=== PATIENT | female | born 1950 | race Hispanic/Latino ===

== ENCOUNTER 2018-05-26 00:35 | Observation (INO) | payer MEDICARE ==
[2018-05-26] VITALS (7 sets, daily range): BP systolic 120–178; BP diastolic 56–83
[~2018-05-26] VITALS: Ht 149.9 cm; Wt 86.2 kg
--- OUTSIDE RECORDS SUMMARY | 2018-05-26 00:37 | XMS REPORT ---
Author [facility] Address Unknown Phone Unavailable Care Team Providers Care Labor Relations Worker Name Role Phone ANDRES VAZQUEZ LEONEL Unavailable Unavailable HODA SIMEON Unavailable Unavailable Problems This patient has no known problems. Allergies, Adverse Reactions, Alerts This patient has no known allergies or adverse reactions. Medications This patient has no known medications. Results Test Description Test Time Test Comments Text Results Atomic Results Result Comments TROPONIN I 2017-07-30 15:53:00 TROPONIN I (BEAKER) (test qebf=818) < ng/mL 0.00-0.03 Troponin I (TnI) levels must be interpreted in the context of the presenting sym ptoms and the clinical findings. Elevated TnI levels indicate myocardial damage, but are not specific for ischemic heart disease. Elevated TnI levels are seen in patients with other cardiac conditions (including myocarditis and congestive h eart failure), and slight TnI elevations occur in patients with other conditions , including sepsis, renal failure, acidosis, acute neurological disease, and per sistent tachyarrhythmia.BASIC METABOLIC [id number] 15:45:00* Test Item Value Reference Range Comments SODIUM (BEAKER) (test gtpw=636) 139 meq/L 136-145 POTASSIUM (BEAKER) (test svvq=279) 3.8 meq/L 3.5-5.1 Specimen slightly hemolyzed CHLORIDE (BEAKER) (test pqdr=583) 103 meq/L 98-107 CO2 (BEAKER) (test xxnt=763) 22 meq/L 22-29 BLOOD UREA NITROGEN (BEAKER) (test dckg=405) 21 mg/dL 7-21 CREATININE (BEAKER) (test sken=418) 0.81 mg/dL 0.57-1.25 Specimen slightly hemolyzed GLUCOSE RANDOM (BEAKER) (test acex=058) 161 mg/dL 70-105 CALCIUM (BEAKER) (test yatm=125) 9.6 mg/dL 8.4-10.2 EGFR (BEAKER) (test pgsc=3605) 71 mL/min/1.73 sq m ESTIMATED GFR IS NOT ACCURATE CREATININE CLEARANCE IN PREDICTING GLOMERULAR FILTRATION RATE. ESTIMATED GFR IS NOT APPLICABLE FOR DIALYSIS PATIENTS. CT, BRAIN, WITHOUT [id number] 15:37:00Reason for exam:->CHEST PAINWhat is the patient's sedation requirement?->No SedationFINAL REPORT CT head without contrast 07/30/2017 3:36 PM CLINICAL HISTORY: Headache, acute, norm neuro examCHEST PAIN TECHNIQUE: Axial noncontrast CT images through the head were obtained. This examination was performed according to our departmental dose optimization program, which includes automated exposure control, adjustment of the mA and/or kV according to patient size, and/or use of iterated reconstruction technique. COMPARISON: 05/14/2014 FINDINGS: There is no hemorrhage, extra-axial collection, mass, hydrocephalus, or midline shift. There is rare chronic-appearing microvascular ischemia in the supratentorial white matter. There is generalized parenchymal volume loss. The visualized paranasal sinuses and mastoid air cells are well aerated. The skull is intact. IMPRESSION: No intracranial hemorrhage or mass effect. If concern for acute pathology persists, further evaluation with MRI is recommended. Signed: Roel Sanders Verified Date/Time: 07/30/2017 15:37:35 Reading Location: [address] Neuro Reading Room Electronically signed by: ROEL SANDERS M.D. on 03:37 PM RAD, CHEST, 1 VIEW, NON [id number] 15:20:00Reason for exam:->CHEST PAINShould this be performed at the bedside?->YesFINAL REPORT History: Chest pain Comparison: 04/28/2016 Findings: The lungs are clear. No pleural effusions or pneumothorax. The heart shadow is normal in size. The thoracic aorta is mildly tortuous. Mild degenerative changes are noted in the acromioclavicular joints. Impression: No evidence of acute cardiopulmonary disease. Signed: Nany Coronado Verified Date/Time: 07/30/2017 15:20:53 Reading Location: [address] Transitional Reading Room B-TYPE NATRIURETIC FACTOR (BNP)2017-07-30 15:09:00* Test Item Value Reference Range Comments B-TYPE NATRIURETIC PEPTIDE (BEAKER) (test xhit=238) 31 pg/mL 0-100 CBC W/PLT COUNT & AUTO [id number] 14:53:00* Test Item Value Reference Range Comments WHITE BLOOD CELL COUNT (BEAKER) (test rbug=895) 12.1 K/ L 3.5-10.5 RED BLOOD CELL COUNT (BEAKER) (test ffjt=871) 4.71 M/ L 3.93-5.22 HEMOGLOBIN (BEAKER) (test xxga=040) 14.7 GM/DL 11.2-15.7 HEMATOCRIT (BEAKER) (test mrsr=039) 42.2 % 34.1-44.9 MEAN CORPUSCULAR VOLUME (BEAKER) (test cysu=201) 89.6 fL 79.4-94.8 MEAN CORPUSCULAR HEMOGLOBIN (BEAKER) (test lbiy=040) 31.2 pg 25.6-32.2 MEAN CORPUSCULAR HEMOGLOBIN CONC (BEAKER) (test ukxg=372) 34.8 GM/DL 32.2-35.5 RED CELL DISTRIBUTION WIDTH (BEAKER) (test yove=590) 13.4 % 11.7-14.4 PLATELET COUNT (BEAKER) (test yyau=757) 276 K/CU MM 150-450 MEAN PLATELET VOLUME (BEAKER) (test wmhp=361) 11.6 fL 9.4-12.3 NUCLEATED RED BLOOD CELLS (BEAKER) (test ujhn=515) 0 /100 WBC 0-0 NEUTROPHILS RELATIVE PERCENT (BEAKER) (test nboc=021) 77 % LYMPHOCYTES RELATIVE PERCENT (BEAKER) (test pxxr=195) 15 % MONOCYTES RELATIVE PERCENT (BEAKER) (test zhzd=446) 6 % EOSINOPHILS RELATIVE PERCENT (BEAKER) (test xjqa=974) 0 % BASOPHILS RELATIVE PERCENT (BEAKER) (test pyit=475) 0 % NEUTROPHILS ABSOLUTE COUNT (BEAKER) (test glzp=269) 9.31 K/ L 1.56-6.13 LYMPHOCYTES ABSOLUTE COUNT (BEAKER) (test nmsg=339) 1.85 K/ L 1.18-3.74 MONOCYTES ABSOLUTE COUNT (BEAKER) (test yiiq=428) 0.71 K/ L 0.24-0.36 EOSINOPHILS ABSOLUTE COUNT (BEAKER) (test zpkc=446) 0.00 K/ L 0.04-0.36 BASOPHILS ABSOLUTE COUNT (BEAKER) (test kfwl=598) 0.05 K/ L 0.01-0.08 IMMATURE GRANULOCYTES-RELATIVE PERCENT (BEAKER) (test iarm=1185) 1 % 0-1 POCT-GLUCOSE [id number] 11:42:00* Test Item Value Reference Range Comments POC-GLUCOSE METER (BEAKER) (test xqkw=9862) 167 mg/dL 70-110 TESTED AT [place] [id number] POCT-GLUCOSE [id number] 08:34:00* Test Item Value Reference Range Comments POC-GLUCOSE METER (BEAKER) (test cqmv=1711) 130 mg/dL 70-110 TESTED AT [address] [address] POCT-GLUCOSE [id number] 21:34:00* Test Item Value Reference Range Comments POC-GLUCOSE METER (BEAKER) (test pfeb=2391) 210 mg/dL 70-110 TESTED AT [address] [address] POCT-GLUCOSE [id number] 17:15:00* Test Item Value Reference Range Comments POC-GLUCOSE METER (BEAKER) (test yiuy=9840) 219 mg/dL 70-110 TESTED AT [address] [address] POCT-GLUCOSE [id number] 16:23:00* Test Item Value Reference Range Comments POC-GLUCOSE METER (BEAKER) (test hntb=1392) 200 mg/dL 70-110 TESTED AT [address] [address] [id number] 09:28:00* Test Item Value Reference Range Comments D-DIMER QUANTITATIVE (BEAKER) (test buqi=813) 0.57 MG/L FEU <0.50 Intended Use: The D-Dimer Assay can be used to aid in the diagnosis of Deep Vein Thrombosis (DVT) and Pulmonary Embolism Disease (PED).In patients with low pre- test probability, various studies concerning STA Liatest D-dimer test have repor dane that with a cutoff value of 0.50 MG/L FEU, the Negative Predictive Value (APPEALS OFFICER V) regarding the exclusion of thrombosis is within 95-100% range.POCT-GLUCOSE [id number] 07:58:00* Test Item Value Reference Range Comments POC-GLUCOSE METER (BEAKER) (test hbac=0156) 256 mg/dL 70-110 TESTED AT [facility] [address] [facility] [address] CREATINE KINASE (CK), TOTAL AND [id number] 06:10:00* Test Item Value Reference Range Comments CREATINE KINASE TOTAL (BEAKER) (test uskc=460) 48 U/L 29-200 CREATINE KINASE-MB (BEAKER) (test awfd=914) 0.7 ng/mL 0.0-6.6 CREATINE KINASE-MB INDEX (BEAKER) (test qfrp=157) 1.5 % Effective 12/25/2013: CK-MB Reference Range ChangeNew: 0.0-6.6 Previous: 0.0- 4.9CK-MB Reference Range:<6.7 Normal6.7-10.0 Borderline>10.0 Abnormal TROPONIN [id number] 06:10:00* Test Item Value Reference Range Comments TROPONIN I (BEAKER) (test bxux=694) 0.01 ng/mL 0.00-0.03 Effective 12/25/2013: Reference Range ChangeNew: 0.00-0.03 Previous 0.00-0.15T roponin I (TnI) levels must be interpreted in the context of the presenting symp toms and the clinical findings. Elevated TnI levels indicate myocardial damage, but are not specific for ischemic heart disease. Elevated TnI levels are seen in patients with other cardiac conditions (including myocarditis and congestive he art failure), and slight TnI elevations occur in patients with other conditions, including sepsis, renal failure, acidosis, acute neurological disease, and pers istent tachyarrhythmia.CREATINE KINASE (CK), TOTAL AND [id number] 01:51:00* Test Item Value Reference Range Comments CREATINE KINASE TOTAL (BEAKER) (test fdxg=317) 50 U/L 29-200 CREATINE KINASE-MB (BEAKER) (test zkbb=559) 0.8 ng/mL 0.0-6.6 CREATINE KINASE-MB INDEX (BEAKER) (test aojd=950) 1.6 % Effective 12/25/2013: CK-MB Reference Range ChangeNew: 0.0-6.6 Previous: 0.0- 4.9CK-MB Reference Range:<6.7 Normal6.7-10.0 Borderline>10.0 Abnormal TROPONIN [id number] 01:51:00* Test Item Value Reference Range Comments TROPONIN I (BEAKER) (test ogxx=172) < ng/mL 0.00-0.03 Effective 12/25/2013: Reference Range ChangeNew: 0.00-0.03 Previous 0.00-0.15T roponin I (TnI) levels must be interpreted in the context of the presenting symp toms and the clinical findings. Elevated TnI levels indicate myocardial damage, but are not specific for ischemic heart disease. Elevated TnI levels are seen in patients with other cardiac conditions (including myocarditis and congestive he art failure), and slight TnI elevations occur in patients with other conditions, including sepsis, renal failure, acidosis, acute neurological disease, and pers istent tachyarrhythmia.[id number] 16:43:00* Test Item Value Reference Range Comments PROTIME (BEAKER) (test tjgk=785) 9.5 seconds 9.8-12.0 INR (BEAKER) (test qure=157) 0.9 <=5.9 PARTIAL THROMBOPLASTIN TIME (BEAKER) (test ujls=822) 23.2 seconds 25.8-34.5 RECOMMENDED COUMADIN/WARFARIN INR THERAPY RANGESSTANDARD DOSE: 2.0 - 3.0 Inclu walter: PROPHYLAXIS for venous thrombosis, systemic embolization; TREATMENT for bob ous thrombosis and/or pulmonary embolus.HIGH RISK: Target INR is 2.5-3.5 for pat ients with mechanical heart valves.RAPID [id number] 16:40:00* Test Item Value Reference Range Comments RAPID CKMB (BEAKER) (test gxkw=7242) < ng/mL 0.0-4.3 RAPID TROPONIN [id number] 16:39:00* Test Item Value Reference Range Comments RAPID TROPONIN I (BEAKER) (test lhea=6158) < ng/mL <0.05 RAPID [id number] 16:39:00* Test Item Value Reference Range Comments RAPID MYOGLOBIN (BEAKER) (test htbg=0960) 65 ng/mL <107 B-TYPE NATRIURETIC FACTOR (BNP)2016-06-28 16:36:00* Test Item Value Reference Range Comments B-TYPE NATRIURETIC PEPTIDE (BEAKER) (test ways=985) 7 pg/mL 0-100 [id number] 16:35:00* Test Item Value Reference Range Comments MAGNESIUM (BEAKER) (test kkms=476) 2.2 mg/dL 1.5-3.0 BASIC METABOLIC [id number] 16:35:00* Test Item Value Reference Range Comments SODIUM (BEAKER) (test usoa=535) 144 meq/L 135-148 POTASSIUM (BEAKER) (test digp=553) 4.3 meq/L 3.6-5.5 CHLORIDE (BEAKER) (test djxe=637) 104 meq/L 98-106 CO2 (BEAKER) (test nzre=862) 31 meq/L 24-32 BLOOD UREA NITROGEN (BEAKER) (test hyqc=753) 17 mg/dL 10-26 CREATININE (BEAKER) (test pwcn=846) 0.94 mg/dL 0.50-1.20 GLUCOSE RANDOM (BEAKER) (test dwnm=740) 142 mg/dL 70-110 CALCIUM (BEAKER) (test bzer=905) 9.5 mg/dL 8.5-10.5 EGFR (BEAKER) (test axzx=0614) 60 mL/min/1.73 sq m ESTIMATED GFR IS NOT ACCURATE CREATININE CLEARANCE IN PREDICTING GLOMERULAR FILTRATION RATE. ESTIMATED GFR IS NOT APPLICABLE FOR DIALYSIS PATIENTS. CREATINE KINASE (CK)2016-06-28 16:35:00* Test Item Value Reference Range Comments CREATINE KINASE TOTAL (BEAKER) (test aoaw=176) 48 U/L 25-235 CBC W/PLT COUNT & AUTO [id number] 16:34:00* Test Item Value Reference Range Comments WHITE BLOOD CELL COUNT (BEAKER) (test wtwf=509) 6.8 10e3/ L 4.0-10.0 RED BLOOD CELL COUNT (BEAKER) (test uwjy=090) 4.53 10e6/ L 4.00-5.00 HEMOGLOBIN (BEAKER) (test aljl=309) 14.0 g/dL 12.0-15.0 HEMATOCRIT (BEAKER) (test pjhm=975) 41.1 % 36.0-45.0 MEAN CORPUSCULAR VOLUME (BEAKER) (test mzoi=643) 90.6 fL 82.0-99.0 MEAN CORPUSCULAR HEMOGLOBIN (BEAKER) (test wqlr=408) 30.8 pg 27.0-33.0 MEAN CORPUSCULAR HEMOGLOBIN CONC (BEAKER) (test amkr=543) 34.0 g/dL 32.0-36.0 RED CELL DISTRIBUTION WIDTH (BEAKER) (test rpyg=716) 12.1 % 10.3-14.2 PLATELET COUNT (BEAKER) (test xcze=932) 251 10e3/ L 150-430 MEAN PLATELET VOLUME (BEAKER) (test dsfp=228) 8.3 fL 6.5-10.5 NEUTROPHILS RELATIVE PERCENT (BEAKER) (test jtnf=843) 56 % LYMPHOCYTES RELATIVE PERCENT (BEAKER) (test eoib=400) 33 % MONOCYTES RELATIVE PERCENT (BEAKER) (test rspa=273) 8 % EOSINOPHILS RELATIVE PERCENT (BEAKER) (test tccc=651) 3 % BASOPHILS RELATIVE PERCENT (BEAKER) (test vsls=223) 0 % NEUTROPHILS ABSOLUTE COUNT (BEAKER) (test tjod=010) 3.84 10e3/ L 1.80-8.00 LYMPHOCYTES ABSOLUTE COUNT (BEAKER) (test xjub=209) 2.22 10e3/ L 1.48-4.50 MONOCYTES ABSOLUTE COUNT (BEAKER) (test ogiy=084) 0.54 10e3/ L 0.00-1.30 EOSINOPHILS ABSOLUTE COUNT (BEAKER) (test ryjt=874) 0.18 10e3/ L 0.00-0.50 BASOPHILS ABSOLUTE COUNT (BEAKER) (test zrnf=853) 0.03 10e3/ L 0.00-0.20
--- OUTSIDE RECORDS SUMMARY | 2018-05-26 00:37 | XMS REPORT | Clinical Summary ---
Author Author DEYSI [facility] Organization [facility] Address Unknown Phone Unavailable Care Team Providers Care Registered Representative Name Role Phone Tito PCP Unavailable Allergies Comments Active Allergy Reactions Severity Noted Date blisters Adhesive Other (See High 03/27/2012 Comments), Rash Swelling,itching, shortness of breath Amitriptyline Swelling, High 11/06/2009 Hives Aspirin, Buffered Rash Low 06/28/2016 bufferin brand Buffers Rash Low 05/14/2014 Meperidine Rash Low 01/23/2008 Worsening acid reflux Ibuprofen Other (See 06/30/2016 Comments) Shaking , to iv iodine Iodine Rash Low 01/23/2008 Iodine And Iodide Itching 07/18/2012 Containing Products Penicillins Rash Low 01/23/2008 Medications End Date Status Medication Sig Dispensed Refills Start Date Active pramipexole (MIRAPEX) 0.5 Take 0.5 mg 0 MG tablet by mouth 2 (two) times daily as needed . Active pyridostigmine (MESTINON) Take 60 mg by 0 60 mg tablet mouth 3 (three) times daily . Active vitamin E 400 UNIT Take 400 0 capsule Units by mouth 2 (two) times daily . Active azelastine (ASTELIN) 137 Use one puff 0 mcg (0.1 %) nasal spray in each 4 nostril twice a day as needed for nasal congestion Active nnsjswlskupyznw-epnutft-f Apply 1 0 oly80 (REFRESH OPTIVE application ADVANCED) 0.5-1-0.5 % to eye(s) 3 Drop (three) times daily . Active mirabegron (MYRBETRIQ) 25 Take 1 tablet 0 201 mg Tb24 ER tablet by mouth. 7 Active ondansetron (ZOFRAN-ODT) Take 8 mg by 0 8 MG disintegrating mouth 3 7 tablet (three) times daily as needed for Nausea . Active venlafaxine (EFFEXOR-XR) Take 37.5 mg 0 37.5 MG 24 hr capsule by mouth 6 daily . Active lisinopril Take 20 mg by 0 (PRINIVIL,ZESTRIL) 20 MG mouth daily . 7 tablet Active mycophenolate (CELLCEPT) TAKE THREE 0 500 mg tablet (3) TABLET(S) 7 BY MOUTH TWICE A DAY. Active traMADol (ULTRAM) 50 mg TAKE ONE (1) 0 tablet TABLET(S) BY 7 MOUTH TWICE A DAY NEEDED FOR PAIN. Active esomeprazole (NEXIUM) 40 Take 1 30 capsule 11 MG capsule capsule (40 7 mg total) by mouth daily. 07/30/2018 Active naproxen (NAPROSYN) 375 Take 1 tablet 20 tablet 0 MG tablet (375 mg 8 total) by mouth 2 (two) times daily with breakfast and dinner. Active Problems Problem Noted Date Gastroesophageal reflux disease without esophagitis 06/29/2016 Essential hypertension 06/29/2016 MARIO ALBERTO on CPAP 06/29/2016 RLS (restless legs syndrome) 06/29/2016 Depression 06/29/2016 Morbid obesity 06/29/2016 Chest pain, unspecified type 06/28/2016 Myasthenia gravis 07/14/2012 Encounters Care Team Description Date Type Specialty Bladimir Vazquez MD Acute nonintractable headache, unspecified headache type (Primary Dx); Chest pain, unspecified type; Right-sided Self's palsy 07/30/2017 Emergency Emergency Medicine 07/30/2017 Orders Only General Internal Medicine after 05/25/2017 Family History Medical History Relation Name Comments Diabetes Daughter Hypertension Daughter Cancer Sister Diabetes Sister Hypertension Son Relation Name Status Comments Daughter Father Mother Sister Son Social History Date Tobacco Use Types Packs/Day Years Used Never Smoker Smokeless Tobacco: Never Used Alcohol Use Drinks/Week oz/Week Comments Yes 2 Standard 1.0 COFFEE 2 CUPS DAILY drinks or equivalent Sex Assigned at Date Recorded Not on file Industry Job Start Date Occupation Not on file Not on file Not on file Travel End Travel History Travel Start No recent travel history available. Last Filed Vital Signs Time Taken Vital Sign Reading 07/30/2017 3:26 PM CDT Blood Pressure 156/71 07/30/2017 3:26 PM CDT Pulse 62 07/30/2017 2:16 PM CDT Temperature 35.9 C (96.6 F) 07/30/2017 3:26 PM CDT Respiratory Rate 16 07/30/2017 3:26 PM CDT Oxygen Saturation 96% - Inhaled Oxygen - Concentration 07/30/2017 2:16 PM CDT Weight 89.8 kg (198 lb) 07/30/2017 2:16 PM CDT Height 149.9 cm (4' 11") 07/30/2017 2:16 PM CDT Body Mass Index 39.99 Plan of Treatment Not on file Procedures Comments Procedure Name Priority Date/Time Associated Diagnosis REPORT OF PROCEDURE - 08/01/2017 ENDOSCOPY SCAN 3:15 PM CDT ED ECG INTERPRETATION Routine 07/30/2017 5:[address] BRAIN WITHOUT IV STAT 07/30/2017 CONTRAST 3:34 PM CDT TROPONIN I STAT 07/30/2017 3:02 PM CDT BASIC METABOLIC PANEL (7) STAT 07/30/2017 3:02 PM CDT XR CHEST 1 VIEW STAT 07/30/2017 PORTABLE/BEDSIDE 2:44 PM CDT CBC W/PLT COUNT & AUTO STAT 07/30/2017 DIFFERENTIAL 2:40 PM CDT B-TYPE NATRIURETIC FACTOR STAT 07/30/2017 (BNP) 2:40 PM CDT CBC W/PLT COUNT & AUTO STAT 07/30/2017 DIFFERENTIAL 2:40 PM CDT ECG 12-LEAD Routine 07/30/2017 2:12 PM CDT ECG 12-LEAD Routine 07/30/2017 2:12 PM CDT Procedure Note - Interface, External Ris In - 07/30/2017 3:02 PM CDT Ventricula r Rate 75 BPM Atrial Rate 75 BPM P-R Interval 160 ms QRS Duration 78 ms Q-T Interval 368 ms QTC Calculatio n(Bazett) 410 ms P Turner 39 degrees R Turner -23 degrees T Turner 11 degrees Normal sinus rhythm Minimal voltage criteria for LVH, may be normal variant Anterolate ral infarct , age undetermin ed Abnormal ECG When compared with ECG of 7 16:06, Nonspecifi c T wave abnormalit y now evident in Anterior leads after 05/25/2017 Results * EKG-SCANNED (08/01/2017 3:15 PM CDT) Narrative Performed At * ED ECG Interpretation (07/30/2017 5:50 PM CDT) Narrative Performed At Bladimir Vazquez MD 07/30/20175:50 PM ECG/EKG Interpretation Date/Time: 07/30/2017 2:22 PM Performed by: BLADIMIR VAZQUEZ Authorized by: BLADIMIR VAZQUEZ The ECG was interpreted by ED physician. This ECG was compared with previous ECG(s).The ECG is interpreted as sinus rhythm. Rate is normal rate. Heart rate is 75 BPM. Conduction: conduction normal. ST segments normal. T waves abnormal. T-wave flattening in lead(s) V3, V4, V5, V6 and aVF. Turner is left. Clinical Impression: non-specific ECGECG reviewed and does not meet STEMI criteria. * CT brain without IV contrast (07/30/2017 3:34 PM CDT) Narrative Performed At FINAL REPORT Endovention CT head without contrast 07/30/2017 3:36 PM CLINICAL HISTORY: Headache, acute, norm neuro exam CHEST PAIN TECHNIQUE: Axial noncontrast CT images through [...] with MRI is recommended. Signed: Roel Sanders MD Report Verified Date/Time:07/30/2017 15:37:35 Reading Location: [address] Neuro Reading Room Procedure Note Interface, External Ris In - 07/30/2017 3:39 PM CDT FINAL REPORT CT head without contrast 07/30/2017 3:36 PM CLINICAL HISTORY: Headache, acute, norm neuro exam CHEST PAIN TECHNIQUE: Axial noncontrast CT images through [...] with MRI is recommended. Signed: Roel Sanders MD Report Verified Date/Time: 07/30/2017 15:37:35 Reading Location: [address] Neuro Reading Room Performing Organization Address City/State/Zipcode Phone Number RIS * Troponin I (not available at [facility] [place]) (07/30/2017 3:02 PM CDT) Troponin I <0.01 0.00 - 0.03 ng/mL [facility] Specimen Blood Narrative Performed At Troponin I (TnI) levels must be interpreted in the context of the presenting [facility] symptoms and the clinical findings. Elevated TnI levels indicate myocardial [facility] damage, but are not specific for ischemic heart disease. Elevated TnI levels are seen in patients with other cardiac conditions (including myocarditis and congestive heart failure), and slight TnI elevations occur in patients with other conditions, including sepsis, renal failure, acidosis, acute neurological disease, and persistent tachyarrhythmia. Performing Organization Address [facility]/Zipcode Phone Number [facility] [address] [place] [address] [facility] * Basic metabolic panel (Na, K+, Cl, CO2, Glu, Ca, BUN, Cr) (07/30/2017 3:02 PM CDT) Sodium 139 136 - 145 meq/L [facility] Potassium 3.8Comment: Specimen slightly 3.5 - 5.1 meq/L [facility] Chloride 103 98 - 107 meq/L [facility] CO2 22 22 - 29 meq/L [facility] BUN 21 7 - 21 mg/dL [facility] Creatinine 0.81Comment: Specimen slightly 0.57 - 1.25 mg/dL [facility] Glucose 161 (H) 70 - 105 mg/dL [facility] Calcium 9.6 8.4 - 10.2 mg/dL [facility] EGFR 71Comment: ESTIMATED GFR IS mL/min/1.73 sq m [facility] NOT ACCURATE CREATININE [facility] CLEARANCE IN PREDICTING GLOMERULAR FILTRATION RATE. ESTIMATED GFR IS NOT APPLICABLE FOR DIALYSIS PATIENTS. Specimen Blood Performing Organization Address [facility] Cent[facility]ode Phone Number [phone] [place] [address] [facility] * XR chest 1 view portable / bedside (07/30/2017 2:44 PM CDT) Narrative Performed At FINAL REPORT [facility] History: Chest pain Comparison: 04/28/2016 Findings: The lungs are clear. No pleural effusions or pneumothorax. The heart shadow is normal in size. The thoracic aorta is mildly tortuous. Mild degenerative changes are noted in the acromioclavicular joints. Impression: No evidence of acute cardiopulmonary disease. Signed: Nany Coronado MD Report Verified Date/Time:07/30/2017 15:20:53 Reading Location: [facility] B1 C013T Transitional Reading Room Procedure Note Interface, External Ris In - 07/30/2017 3:23 PM CDT FINAL REPORT History: Chest pain Comparison: 04/28/2016 Findings: The lungs are clear. No pleural effusions or pneumothorax. The heart shadow is normal in size. The thoracic aorta is mildly tortuous. Mild degenerative changes are noted in the acromioclavicular joints. Impression: No evidence of acute cardiopulmonary disease. Signed: Nany Coronado MD Report Verified Date/Time: 07/30/2017 15:20:53 Reading Location: [facility] C013 Transitional Reading Room Performing Organization Address City/State/Zipcode Phone Number GE RIS * CBC with platelet count + automated diff (07/30/2017 2:40 PM CDT) WBC 12.1 (H) 3.5 - 10.5 K/L [facility] RBC 4.71 3.93 - 5.22 M/L [facility] Hemoglobin 14.7 11.2 - 15.7 GM/DL [facility] Hematocrit 42.2 34.1 - 44.9 % [facility] MCV 89.6 79.4 - 94.8 fL [facility] MCH 31.2 25.6 - 32.2 pg [facility] MCHC 34.8 32.2 - 35.5 GM/DL [facility] RDW 13.4 11.7 - 14.4 % [facility] Platelets 276 150 - 450 K/CU MM [facility] MPV 11.6 9.4 - 12.3 fL [facility] nRBC 0 0 - 0 /100 WBC [facility] % Neutros 77 % [facility] % Lymphs 15 % [facility] % Monos 6 % [facility] % Eos 0 % [facility] % Baso 0 % [facility] # Neutros 9.31 (H) 1.56 - 6.13 K/L [facility] # Lymphs 1.85 1.18 - 3.74 K/L [facility] # Monos 0.71 (H) 0.24 - 0.36 K/L [facility] # Eos 0.00 (L) 0.04 - 0.36 K/L [facility] # Baso 0.05 0.01 - 0.08 K/L [facility] Immature 1 0 - 1 % [facility] Granulocytes-Relative [facility] Specimen Blood Performing Organization Address City/State/Zipcode Phone Number [facility] [address] [place] [address] [phone] [place] [address] * B-type natriuretic peptide (07/30/2017 2:40 PM CDT) BNP 31 0 - 100 pg/mL [facility] Specimen Blood Performing Organization Address City/State/Zipcode Phone Number [address] [address] [phone] [place] [address] * ECG 12 lead (07/30/2017 2:12 PM CDT) Narrative Performed At Ventricular Rate 75 BPM [facility] Atrial Rate 75 BPM P-R Interval 160 ms QRS Duration 78 ms Q-T Interval 368 ms QTC Calculation(Bazett) 410 ms P Turner 39 degrees R Turner -23 degrees T Turner 11 degrees Normal sinus rhythm Minimal voltage criteria for LVH, may be normal variant Anterolateral infarct , age undetermined Abnormal ECG When compared with ECG of 28-JUN-2016 16:06, Nonspecific T wave abnormality now evident in Anterior leads Confirmed by MD ERON, JOSELIN Andrade ([id number]) on 07/31/2017 4:20:31 PM Procedure Note Interface, External Ris In - 07/31/2017 4:20 PM CDT Ventricular Rate 75 BPM Atrial Rate 75 BPM P-R Interval 160 ms QRS Duration 78 ms Q-T Interval 368 ms QTC Calculation(Bazett) 410 ms P Turner 39 degrees R Turner -23 degrees T Turner 11 degrees Normal sinus rhythm Minimal voltage criteria for LVH, may be normal variant Anterolateral infarct , age undetermined Abnormal ECG When compared with ECG of 28-JUN-2016 16:06, Nonspecific T wave abnormality now evident in Anterior leads Confirmed by MD ERON, JOSELIN Andrade ([id number]) on 07/31/2017 4:20:31 PM Performing Organization Address City/State/Zipcoga Phone Number GE MUSE after 05/25/2017 Insurance Payer Benefit Subscriber ID Type Phone Address Plan / Group KELSEYCARE KELSEYCARE xxxxxxxxxxx MEDICARE ADV MEDICAID MEDICAID xxxxxxxxx Medicaid [place] Advance Directives For more information, please contact: [facility] [address] [place] [address] Date Inactivated Comments Code Status Date Activated 06/30/2016 7:06 PM Full Code 06/28/2016 8:49 PM This code status was determined by: Patient
[2018-05-26] MEDS ORDERED: SODIUM CHLORIDE 0.9% 500ML 500 ML IV STA (00:51)
[2018-05-26] MEDS ORDERED: FAMOTIDINE 20 MG/2 ML VIAL IV ONE (01:00)
[2018-05-26] MEDS ORDERED: KETOROLAC TROMETHAMINE 30 MG/ML VIAL IV ONE (01:00)
[2018-05-26] MEDS ORDERED: ONDANSETRON HCL INJ 2MG/ML 2ML 2 MG/ML VIAL IV ONE (01:00)
--- NOTE | 2018-05-26 01:38 | Diagnostic Imaging Report ---
EXAMINATION: CXR 1 VIEW - HOPD COMPARISON: None INDICATION: Headache ^[id number] ^[id number] DISCUSSION: Frontal view of the chest obtained at 0116 hours. HEART AND MEDIASTINUM: The cardiomediastinal silhouette is unremarkable. LINES: None. LUNGS: The lungs are well inflated and clear. No pneumonia or pulmonary edema. PLEURA: No pleural effusion or pneumothorax. BONES AND SOFT TISSUES: No focal osseous lesion. The soft tissues are normal. IMPRESSION: No acute cardiopulmonary disease. Signed by: Dr. Candy Centeno MD on 05/26/2018 1:35 AM
--- NOTE | 2018-05-26 01:40 | Diagnostic Imaging Report ---
History:Headache Comparison studies:None Technique: Axial images were obtained from the skull base to the vertex. Coronal and sagittal images reconstructed from the axial data. Intravenous contrast: None Dose modulation, iterative reconstruction, and/or weight based adjustment of the mA/kV was utilized to reduce the radiation dose to as low as reasonably achievable. Findings: Scalp/skull: No abnormalities. Extra-axial spaces: No masses. No fluid collections. Brain sulci: Age appropriate. Ventricles: Age appropriate.. No hydrocephalus. Parenchyma: Few hypodensities in the supratentorial white matter are small vessel ischemic changes. No masses, hemorrhage, acute or chronic cortical vascular insults. Sellar/suprasellar region: No abnormalities. Craniocervical junction: Patent foramen magnum. No Chiari one malformation. Incidental findings: Atherosclerotic calcifications in the carotid siphons . Impression: No acute abnormalities. Chronic findings: 1. Mild supratentorial white matter small vessel ischemic changes. Signed by: DR Joaquin Ellison M.D. on 05/26/2018 1:36 AM
[2018-05-26] MEDS ORDERED: LABETALOL HCL 5 MG/ML 20ML VIAL IV STA ×2 (01:51→02:15)
[2018-05-26] MEDS ORDERED: SODIUM CHLORIDE 0.9% 1000ML 1,000 ML IV STA (01:55)
[2018-05-26] MEDS ORDERED: MORPHINE SULFATE 2 MG/ML SYR 1ML IV PRN (02:00)
[2018-05-26] MEDS ORDERED: PROMETHAZINE 12.5MG/ NACL 0.9% 12.5 MG/50 ML BAG IV PRN (02:00)
[2018-05-26] MEDS ORDERED: ZOLPIDEM TARTRATE 5 MG TAB PO PRN (02:00)
[2018-05-26] MEDS ORDERED: ENALAPRILAT IV INJ 1.25 MG/ML VIAL IV PRN (02:00)
[2018-05-26] MEDS ORDERED: DIPHENHYDRAMINE HCL INJ 50 MG/ML VIAL IV PRN (02:00)
[2018-05-26] MEDS ORDERED: DIPHENHYDRAMINE HCL INJ 50 MG/ML VIAL IV ONE (02:15)
[2018-05-26] MEDS ORDERED: PROMETHAZINE 12.5MG/ NACL 0.9% 12.5 MG/50 ML BAG IV ONE (02:15)
[2018-05-26] MEDS ORDERED: DEXTROSE 50% SYRINGE 50 ML IV PRN (02:15)
--- OUTSIDE RECORDS SUMMARY | 2018-05-26 02:17 | XMS REPORT | Clinical Summary ---
Author Author DEYSI [facility] Organization [facility] Address Unknown Phone Unavailable Care Team Providers Care Churner Name Role Phone Tito PCP Unavailable Allergies [...] day as needed for nasal congestion Active bnhwbrsucxbwbab-zjhqmhp-l Apply 1 0 oly80 (REFRESH OPTIVE application [...] ms QTC Calculatio n(Bazett) 410 ms P [place] 39 degrees R [place] -23 degrees T [place] 11 degrees Normal sinus rhythm Minimal voltage [...] lead(s) V3, V4, V5, V6 and aVF. [place] is left. Clinical Impression: non-specific ECGECG reviewed and does not meet STEMI criteria. * CT brain without IV contrast (07/30/2017 3:34 PM CDT) Specimen Narrative Performed At FINAL REPORT [facility] CT head without contrast 07/30/2017 3:36 PM [...] MD Report Verified Date/Time:07/30/2017 15:37:35 Reading Location: [address] Neuro Reading Room Procedure Note Interface, [...] Report Verified Date/Time: 07/30/2017 15:37:35 Reading Location: [address] Neuro Reading Room Performing Organization Address City/State/Zipcode Phone Number RIS * Troponin I (not available at [facility] [place]) (07/30/2017 3:02 PM CDT) Troponin I <0.01 0.00 - 0.03 ng/mL [facility] Specimen Blood Narrative Performed At Troponin I (TnI) levels must be interpreted in the context of the presenting [facility] symptoms and the clinical findings. Elevated TnI levels indicate myocardial [facility] damage, but are not specific for ischemic heart disease. Elevated TnI levels are seen in patients with other cardiac conditions (including myocarditis and congestive heart failure), and slight TnI elevations occur in patients with other conditions, including sepsis, renal failure, acidosis, acute neurological disease, and persistent tachyarrhythmia. Performing Organization Address [facility]/Zipcode Phone Number [facility] [address] [place], [place] [phone] [facility] * Basic metabolic panel (Na, K+, Cl, CO2, Glu, Ca, BUN, Cr) (07/30/2017 3:02 PM CDT) Sodium 139 136 - 145 meq/L [facility] Potassium 3.8Comment: Specimen slightly 3.5 - 5.1 meq/L [facility] Chloride 103 98 - 107 meq/L [facility] CO2 22 22 - 29 meq/L [facility] BUN 21 7 - 21 mg/dL [facility] Creatinine 0.81Comment: Specimen slightly 0.57 - 1.25 mg/dL [facility] Glucose 161 (H) 70 - 105 mg/dL [facility] Calcium 9.6 8.4 - 10.2 mg/dL [facility] EGFR 71Comment: ESTIMATED GFR IS mL/min/1.73 sq m [facility] NOT ACCURATE CREATININE [facility] CLEARANCE IN PREDICTING GLOMERULAR FILTRATION RATE. ESTIMATED GFR IS NOT APPLICABLE FOR DIALYSIS PATIENTS. Specimen Blood Performing Organization Address [facility] Centercode Phone Number [phone] [place], [place] [phone] [facility] * XR chest 1 view portable / bedside (07/30/2017 2:44 PM CDT) Specimen Narrative Performed At FINAL REPORT [facility] History: Chest pain Comparison: 04/28/2016 Findings: The lungs are clear. No pleural effusions or pneumothorax. The heart shadow is normal in size. The thoracic aorta is mildly tortuous. Mild degenerative changes are noted in the acromioclavicular joints. Impression: No evidence of acute cardiopulmonary disease. Signed: Nany Coronado MD Report Verified Date/Time:07/30/2017 15:20:53 Reading Location: [facility] C0[facility] Transitional Reading Room Procedure Note Interface, External [...] Report Verified Date/Time: 07/30/2017 15:20:53 Reading Location: [facility] C013 Transitional Reading Room Performing Organization Address City/State/Zipcode Phone Number GE RIS * CBC with platelet count + automated diff (07/30/2017 2:40 PM CDT) WBC 12.1 (H) 3.5 - 10.5 K/L [facility] RBC 4.71 3.93 - 5.22 M/L [facility] Hemoglobin 14.7 11.2 - 15.7 GM/DL [facility] Hematocrit 42.2 34.1 - 44.9 % [facility] MCV 89.6 79.4 - 94.8 fL [facility] MCH 31.2 25.6 - 32.2 pg [facility] MCHC 34.8 32.2 - 35.5 GM/DL [facility] RDW 13.4 11.7 - 14.4 % [facility] Platelets 276 150 - 450 K/CU MM [facility] MPV 11.6 9.4 - 12.3 fL [facility] nRBC 0 0 - 0 /100 WBC [facility] % Neutros 77 % [facility] % Lymphs 15 % [facility] % Monos 6 % [facility] % Eos 0 % [facility] % Baso 0 % [facility] # Neutros 9.31 (H) 1.56 - 6.13 K/L [facility] # Lymphs 1.85 1.18 - 3.74 K/L [facility] # Monos 0.71 (H) 0.24 - 0.36 K/L [facility] # Eos 0.00 (L) 0.04 - 0.36 K/L [facility] # Baso 0.05 0.01 - 0.08 K/L [facility] Immature 1 0 - 1 % [facility] Granulocytes-Relative [facility] Specimen Blood Performing Organization Address City/[facility]/[place] [address] [phone] [place] [address] * B-type natriuretic peptide (07/30/2017 2:40 PM CDT) BNP 31 0 - 100 pg/mL [facility] Specimen Blood Performing Organization Address City/State/Zipcode Phone Number [address] [address] [phone] [place] [address] * ECG 12 lead (07/30/2017 2:12 PM CDT) Specimen Narrative Performed At Ventricular Rate 75 BPM [facility] Atrial Rate 75 BPM P-R Interval 160 ms QRS Duration 78 ms Q-T Interval 368 ms QTC Calculation(Bazett) 410 ms P [place] 39 degrees R [place] -23 degrees T [place] 11 degrees Normal sinus rhythm Minimal voltage criteria for LVH, may be normal variant Anterolateral infarct , age undetermined Abnormal ECG When compared with ECG of 28-JUN-2016 16:06, Nonspecific T wave abnormality now evident in Anterior leads Confirmed by MD ERON, JOSELIN Andrade ([id number]) on 07/31/2017 4:20:31 PM Procedure Note Interface, External Ris In - 07/31/2017 4:20 PM CDT Ventricular Rate 75 BPM Atrial Rate 75 BPM P-R Interval 160 ms QRS Duration 78 ms Q-T Interval 368 ms QTC Calculation(Bazett) 410 ms P [place] 39 degrees R [place] -23 degrees T [place] 11 degrees Normal sinus rhythm Minimal voltage criteria for LVH, may be normal variant Anterolateral infarct , age undetermined Abnormal ECG When compared with ECG of 28-JUN-2016 16:06, Nonspecific T wave abnormality now evident in Anterior leads Confirmed by MD ERON, JOSELIN Andrade ([id number]) on 07/31/2017 4:20:31 PM Performing Organization Address City/State/Zipcode Phone Number GE MUSE after 05/25/2017 Insurance Payer Benefit Subscriber ID Type Phone Address Plan / Group K[employer]YCARE KELSEYCARE xxxxxxxxxxx MEDICARE ADV MEDICAID MEDICAID xxxxxxxxx Medicaid OF [place] Advance Directives For more information, please contact: [facility] [address] [place] [address] Date Inactivated Comments Code Status Date Activated 06/30/2016 7:06 PM Full Code 06/28/2016 8:49 PM This code status was determined by: Patient
[2018-05-26] MEDS ORDERED: LISINOPRIL10 MG PO (02:37)
[2018-05-26] MEDS ORDERED: TOPIRAMATE25 MG PO (02:37)
[2018-05-26] MEDS ORDERED: ATORVASTATIN CA10 MG PO (02:37)
[2018-05-26] MEDS ORDERED: MYCOPHENOLATE250 MG PO (02:37)
[2018-05-26] MEDS ORDERED: VENLAFAXINE HCL75 MG PO (02:37)
[2018-05-26] MEDS ORDERED: AZELASTINE137 MCG/0. (02:37)
[2018-05-26] MEDS ORDERED: PRAMIPEXOLE D0.25 MG PO (02:37)
[2018-05-26] MEDS ORDERED: METFORMIN HCL500 M2 PO (02:37)
[2018-05-26] MEDS ORDERED: MYRBETRIQ25 MG (02:37)
[2018-05-26] MEDS ORDERED: ULTRAM50 MG PO (02:37)
[2018-05-26] MEDS ORDERED: OMEPRAZOLE40 MG PO (02:37)
[2018-05-26] MEDS ORDERED: VITAMIN E400 UNI5 (03:43)
[2018-05-26] MEDS ORDERED: MORPHINE SULFATE INJ 4 MG/ML INJ 1ML IV PRN (04:31)
--- NOTE | 2018-05-26 04:41 | NUR ---
Patient arrived from [facility] free standing ER admitted for headache, N/V. Patient also have uncontrolled HTN. Daughter came with patient. Patient is complaining of restless leg syndrome and takes a home medication, pramipexole. Patient is alert/oriented X3 with the VS within the normal parameter except for BP at 178/81. Patient was given Vasotec and about 15 minutes later, blood pressure was measured at 127/69. Patient continues to be restless with the blood pressure now at 187/87 at 0440. Patient was given morphine 2 mg at 0440. Continue to monitor BP
--- NOTE | 2018-05-26 07:24 | NUR ---
RECEIVED PATIENT AND WALKING ROUNDS COMPLETE. PATIENT RESTING IN BED AT THIS TIME, NO SIGNS OF DISTRESS. CALL LIGHT IN REACH WILL CONTINUE TO MONITOR.
[2018-05-26] MEDS: INSULIN REGULAR, HUMAN 100 UNIT/1 ML 3ML VIAL SQ SCH ×2 (08:19→12:10)
[2018-05-26] MEDS ORDERED: FAMOTIDINE 20 MG/2 ML VIAL IV SCH (09:00)
--- NOTE | 2018-05-26 10:41 | NUR ---
PATIENT LEFT FOR MRI AT THIS TIME VIA WHEELCHAIR.
--- NOTE | 2018-05-26 11:21 | NUR ---
PATIENT BACK FROM MRI AT THIS TIME.
--- NOTE | 2018-05-26 12:28 | Diagnostic Imaging Report ---
Exam: Brain MRI without IV contrast History: Headache Comparison studies: Head CT 05/26/2018 Technique: Sagittal and axial T2 FS, axial DWI, axial T2*GRE, axial T1 FLAIR and axial coronal T2 FLAIR. Intravenous contrast: None Findings: Scalp: Normal in signal. No masses. Bone marrow: Normal in signal intensity. Brain sulci: Appropriate for age. Ventricles: Normal in size. No hydrocephalus. Extra axial spaces: No mass, no fluid collection. Parenchyma: No abnormal signal intensities. No mass, hemorrhage or acute ischemia. No chronic cortical insults. Suprasellar region: Mildly expanded, mostly CSF filled sella, a nonspecific finding. Additionally, there is mild vertical tortuosity of the optic nerve sheath complexes. Consider idiopathic intracranial hypertension only in the appropriate clinical setting. Craniocervical junction: Patent foramen magnum. No Chiari malformation. Vessels: Normal flow-voids in the arteries and sinuses. Paranasal sinuses: Scattered nonspecific T2 hyperintense mucosal thickening in the paranasal sinuses with left maxillary sinus fluid level. Incidental findings: Minimal bilateral mastoid reactive changes. Lens replacements for previous cataract surgery. IMPRESSION: 1. Incidental partially CSF filled sella, a nonspecific but can be seen in patients with idiopathic intracranial hypertension in the appropriate clinical setting. Moreover, initial presentation of this diagnosis would be somewhat unusual in a patient of this age. 2. No other intracranial abnormalities. 3. Inflammatory changes in the paranasal sinuses could be correlated for acute sinusitis Signed by: Dr. Clarke Valente M.D. on 05/26/2018 12:25 PM
--- NOTE | 2018-05-26 14:13 | NUR ---
REMOVED PATIENTS IV. CATHETER TIP INTACT AND PRESSURE DRESSING APPLIED.
--- NOTE | 2018-05-26 14:19 | NUR ---
PATIENT DISCHARGED FROM FACILITY. PATIENT GATHERED ALL PERSONAL BELONGINGS, DISCHARGE INSTRUCTIONS, AND FOLLOW UP INFORMATION. PATIENT LEFT UNIT IN WHEELCHAIR AND WENT HOME VIA PRIVATE AUTO. NO SIGNS OF DISTRESS LEAVING FACILITY.
--- NOTE | 2018-05-26 23:03 | Discharge Summary ---
PRIMARY CARE DOCTOR: Dr. Euceda. FINAL DIAGNOSIS: Possible pseudotumor cerebri. SECONDARY DIAGNOSES: 1. Obesity. 2. Diabetes. 3. Hypertension. 4. Myasthenia gravis. PROCEDURE/STUDIES PERFORMED: 1. Head CT. 2. Brain MRI. CONSULTANTS: None. HISTORY: Per [facility] and [facility]. HOSPITAL COURSE: The patient was admitted with intractable headache with severe nausea. The patient's headache is bilateral, this has been going on for years. She usually gets flare-ups every week or so. The patient has been told that she has migraine even though the pain is on both side. Currently, her pain has subsided. Of note, the patient also is taking CellCept for myasthenia gravis. Currently, she is tolerating oral intake. Denies chest pain. No shortness of breath. The MRI report is consistent with idiopathic intracranial hypertension, however, given the fact the patient is better and the fact that she is also on CellCept, we will defer this to outpatient workup. The patient will follow up with her primary care doctor and her neurologist. I have printed out MRI report for her to take home. The patient's diabetes is stable. Her blood pressure is stable. CONDITION ON DISCHARGE: Improved. DISCHARGE MEDICATIONS: Please see medication reconciliation form. Ashelyching MD KENNY Hackett/[place] /[id number] cc: [facility]
== END 2018-05-26 14:19 | disposition home or self-care (01) ==
LOC: FSED 00:35 → ERHOLD 02:01 → MED/SURG 03:18
PROVIDERS: ADMIT Internal Medicine; ATTEND Internal Medicine
DX: G43.019 Migraine without aura, intractable, without status migrainosus (principal); I10 Essential (primary) hypertension; E11.9 Type 2 diabetes mellitus without complications; Z88.0 Allergy status to penicillin; Z88.8 Allergy status to other drugs, medicaments and biological substances; Z91.041 Radiographic dye allergy status; Z91.040 Latex allergy status; E78.5 Hyperlipidemia, unspecified; G70.00 Myasthenia gravis without (acute) exacerbation; Z83.3 Family history of diabetes mellitus; E66.9 Obesity, unspecified; Z68.38 Body mass index [BMI] 38.0-38.9, adult; Z79.84 Long term (current) use of oral hypoglycemic drugs
CPT/HCPCS: 36415; 70450; 70551; 71045; 80053; 81003; 82948; 85025; 85651; 87400; 99284; G0378; J1817; J2270; J7030; J7040